=== PATIENT | male | born 1970 | race African-American/Black ===

== ENCOUNTER 2019-07-16 18:38 | Observation (INO) ==
[2019-07-16] MEDS ORDERED: ENOXAPARIN 120 MG/0.8 ML SYRINGE SUBCUT ONE ×2 (21:37→22:00)
[2019-07-16] MEDS: hydrALAZINE 20 MG/1 ML VIAL IV PRN (21:47)
[2019-07-16] MEDS ORDERED: ONDANSETRON 4 MG/2 ML VIAL IV PRN (22:36)
[2019-07-16] MEDS ORDERED: MORPHINE 4 MG/1 ML VIAL IV PRN (22:36)
[2019-07-16] MEDS ORDERED: traZODone 50 MG TABLET PO PRN (22:36)
[2019-07-16] MEDS ORDERED: ACETAMINOPHEN 325 MG TABLET PO PRN (22:36)
[2019-07-16] MEDS ORDERED: DOCUSATE SODIUM 100 MG CAPSULE PO PRN (22:36)
[2019-07-16] MEDS ORDERED: NITROGLYCERIN SL 0.4 MG TABLET SL PRN (22:43)
[2019-07-17] MEDS ORDERED: MAGNESIUM SULF RIDER 2 GM in PREMIX 1 EACH IV PRN (01:05)
[2019-07-17] MEDS ORDERED: MAGNESIUM SULF RIDER 4 GM in PREMIX 1 EACH IV PRN (01:05)
[2019-07-17 01:21] LABS: Basophils # 0.1 10*3/uL (0.0-0.2); Basophils % 0.8 % (0.0-0.8); Eosinophils # 0.2 10*3/uL (0.0-0.87); Hematocrit 43.4 VOL% (42.0-52.0); Hemoglobin 14.2 GM/DL (14.0-18.0); Immature Granulocytes % 0.3 %; Immature Granulocytes Absolute 0.02 #; Lymphocytes # 3.8 10*3/uL (1.4-4.0); Lymphocytes % 49.4 % (21.2-54.2); Mean Corpuscular HGB Conc 32.7 GM/DL (32-36); Mean Corpuscular Volume 89.9 FL (87-102); Mean Platelet Volume 9.6 FL (9.6-12.0); Monocytes % 4.6 % (1.7-12.7); Neutrophils % 41.9 % (38.7-73.9); Platelet Count 262 T/CUMM (130-400); Red Blood Count 4.83 MC/CUMM (3.8-5.5); Red Cell Distribution Width 13.2 % (9.3-17.3); White Blood Count 7.8 T/CUMM (4-12)
[2019-07-17 01:57] LABS: Albumin 3.5 G/DL (3.4-5.0); Bilirubin,Total 1.3 MG/DL (0.2-1.0); Calcium 8.8 MG/DL (8.5-10.1); Osmolality,Calculated 273.8 MOS/KG (273-304); Risk Ratio 4.91; Thyroid Stimulating Hormone 2.76 uIU/ml (0.358-3.74); Total Protein 7.2 G/DL (6.4-8.3); VLDL CHOLESTEROL 76.8 MG/DL
[2019-07-17] MEDS ORDERED: CARVEDILOL 12.5 MG TABLET PO SCH (08:00)
[2019-07-17] MEDS ORDERED: ISOSORBIDE MONONITRATE 30 MG TABLET PO SCH (08:00)
[2019-07-17] MEDS ORDERED: CLOPIDOGREL 75 MG TABLET PO SCH (09:00)
[2019-07-17] MEDS ORDERED: FUROSEMIDE 40 MG TABLET PO SCH (09:00)
[2019-07-17] MEDS ORDERED: ATORVASTATIN 80 MG TABLET PO SCH (09:00)
[2019-07-17] MEDS ORDERED: ASPIRIN EC 81 MG TABLET PO SCH (09:00)
[2019-07-17] MEDS ORDERED: PANTOPRAZOLE 40 MG TABLET PO SCH (09:00)
[2019-07-17] MEDS ORDERED: POTASSIUM CHLORIDE 10 MEQ TABLET PO SCH (09:00)
[2019-07-17] MEDS ORDERED: LOSARTAN 50 MG TABLET PO SCH (09:00)
[2019-07-17] MEDS: GABAPENTIN 600 MG TABLET PO SCH ×2 (09:15→16:36)
[2019-07-17] MEDS: hydrALAZINE 20 MG/1 ML VIAL IV PRN (09:19)
[2019-07-17 13:28] LABS: Troponin I < 0.015 NG/ML (0.00-0.045)
[2019-07-17 16:48] VITALS: BP 138/90
[2019-07-17] MEDS ORDERED: ENOXAPARIN 40 MG/0.4 ML SYRINGE SUBCUT SCH (21:00)
[2019-07-18] MEDS ORDERED: LOSARTAN 50 MG TABLET PO SCH (09:00)
== END 2019-07-17 16:52 | disposition home or self-care (01) ==
LOC: N.TELEN
PROVIDERS: ADMIT Internal Medicine; ATTEND Internal Medicine

== ENCOUNTER 2022-01-09 21:00 | Inpatient (IN) ==
[2022-01-09] MEDS ORDERED: GLUCAGON 1 MG VIAL IM PRN (22:44)
[2022-01-09] MEDS ORDERED: MAGNESIUM SULF RIDER 2 GM/50 ML PREMIX IV PRN (22:45)
[2022-01-09] MEDS ORDERED: ACETAMINOPHEN 325 MG TABLET PO PRN (22:45)
[2022-01-09] MEDS ORDERED: MAGNESIUM SULF RIDER 4 GM/100 ML PREMIX IV PRN (22:45)
[2022-01-09] MEDS ORDERED: ONDANSETRON 4 MG/2 ML VIAL IV PRN (22:45)
[2022-01-09] MEDS ORDERED: POTASSIUM CHLORIDE 20 MEQ TABLET PO PRN (22:45)
[2022-01-09] MEDS ORDERED: DEXTROSE 10% 250 ML BAG IV PRN (22:52)
[2022-01-09] MEDS ORDERED: ENOXAPARIN 40 MG/0.4 ML SYRINGE SUBCUT SCH (23:00)
[2022-01-09 23:13] LABS: Basophils % 0.4 % (0.0-0.8); Eosinophils # 0.2 10*3/uL (0.0-0.87); Eosinophils % 2.5 % (0.00-10.9); Hematocrit 44.8 VOL% (42.0-52.0); Hemoglobin 15.1 GM/DL (14.0-18.0); Immature Granulocytes % 0.8 %; Immature Granulocytes Absolute 0.07 #; Lymphocytes # 1.4 10*3/uL (1.4-4.0); Lymphocytes % 14.8 % (21.2-54.2); Mean Corpuscular HGB Conc 33.7 GM/DL (32-36); Mean Corpuscular Volume 95.9 FL (87-102); Mean Platelet Volume 10.4 FL (9.6-12.0); Monocytes % 9.1 % (1.7-12.7); Neutrophils % 72.4 % (38.7-73.9); Platelet Count 129 T/CUMM (130-400); Red Blood Count 4.67 MC/CUMM (3.8-5.5); Red Cell Distribution Width 14.2 % (9.3-17.3); White Blood Count 9.1 T/CUMM (4-12)
[2022-01-09 23:23] LABS: PT Patient Result 10.8 SECS (10.5-12.0); Partial Thromboplastin Time 27.5 SECS (23.8-32.1)
[2022-01-09] MEDS: SODIUM CHLORIDE 0.9% 1,000 ML IV SCH (23:27)
[2022-01-09 23:34] LABS: Albumin 3.2 G/DL (3.4-5.0); Bilirubin,Total 0.9 MG/DL (0.20-1.00); Calcium 9.9 MG/DL (8.5-10.1); Osmolality,Calculated 280.4 MOS/KG (273-304); Potassium 3.4 MMOL/L (3.5-5.1); Risk Ratio 4.88; Total Protein 7.9 G/DL (6.4-8.2); VLDL Cholesterol 40.2 MG/DL
[2022-01-09] MEDS ORDERED: INFLUENZA VIRUS VACCINE 0.5 ML SYRINGE IM ONE (23:53)
[2022-01-10] MEDS: HYDROmorphone 1 MG/1 ML SYRINGE IV PRN ×6 (00:09→21:05)
[2022-01-10] MEDS: POTASSIUM CHLORIDE RIDER 10 MEQ/100 ML PREMIX IV PRN ×3 (03:05→05:23)
[2022-01-10 03:40] LABS: Hyaline Casts,Urine 8 /LPF (0-3); Mucus,Urine Few /LPF (Occasional); RBC,Urine 2 /HPF (0-4); Squamous Epithelial Cell,Urine Occasional /HPF (0-10)
[2022-01-10 03:41] LABS: Glucose,Urine (UA) 250 mg/dL (Negative); Ketones,Urine 15 mg/dL (Negative); Nitrite,Urine Positive (Negative); Protein,Urine >=300 MG/DL; Urine Appearance Slightly Cloudy (Clear); Urine Color Dark Yellow (Yellow); Urine Specific Gravity > 1.030 (1.001-1.035); Urine pH 6.5 (4.5-8.0)
[2022-01-10 03:42] LABS: Bilirubin,Urine Moderate mg/dL (Negative); Blood, Urine Trace mg/dL (Negative); Urine Urobilinogen 0.2 EU/DL (<2.0)
[2022-01-10] MEDS: FENOFIBRATE 145 MG TABLET PO SCH (08:40)
[2022-01-10] MEDS: carvediloL 12.5 MG TABLET PO SCH ×2 (08:40→21:02)
[2022-01-10] MEDS: ENOXAPARIN 40 MG/0.4 ML SYRINGE SUBCUT SCH (08:41)
[2022-01-10] MEDS: INSULIN REGULAR 100 UNIT/ML SUBCUT SCH ×4 (08:41→20:58)
[2022-01-10] MEDS: PANTOPRAZOLE 40 MG VIAL IV SCH (08:41)
[2022-01-10 09:14] LABS: Basophils % 0.4 % (0.0-0.8); Eosinophils # 0.2 10*3/uL (0.0-0.87); Eosinophils % 2.6 % (0.00-10.9); Hematocrit 41.1 VOL% (42.0-52.0); Hemoglobin 13.8 GM/DL (14.0-18.0); Immature Granulocytes % 0.7 %; Immature Granulocytes Absolute 0.05 #; Lymphocytes # 1.2 10*3/uL (1.4-4.0); Lymphocytes % 16.9 % (21.2-54.2); Mean Corpuscular HGB Conc 33.6 GM/DL (32-36); Mean Platelet Volume 10.6 FL (9.6-12.0); Monocytes % 9.7 % (1.7-12.7); Neutrophils % 69.7 % (38.7-73.9); Platelet Count 138 T/CUMM (130-400); Red Blood Count 4.28 MC/CUMM (3.8-5.5); Red Cell Distribution Width 14.5 % (9.3-17.3); White Blood Count 6.9 T/CUMM (4-12)
[2022-01-10 09:33] LABS: Calcium 9.4 MG/DL (8.5-10.1); Osmolality,Calculated 278.4 MOS/KG (273-304); Potassium 3.7 MMOL/L (3.5-5.1)
[2022-01-10] MEDS: SODIUM CHLORIDE 0.9% 1,000 ML IV SCH ×2 (10:51→19:01)
[2022-01-10] MEDS: DOCUSATE SODIUM 100 MG CAPSULE PO SCH ×2 (11:33→21:03)
[2022-01-10] MEDS: ATORVASTATIN 80 MG TABLET PO SCH (21:02)
[2022-01-11] MEDS: HYDROmorphone 1 MG/1 ML SYRINGE IV PRN ×3 (02:57→12:49)
[2022-01-11] MEDS: SODIUM CHLORIDE 0.9% 1,000 ML IV SCH ×2 (02:57→13:47)
[2022-01-11 05:22] LABS: Basophils % 0.6 % (0.0-0.8); Eosinophils # 0.2 10*3/uL (0.0-0.87); Eosinophils % 2.6 % (0.00-10.9); Hematocrit 39.3 VOL% (42.0-52.0); Hemoglobin 12.5 GM/DL (14.0-18.0); Immature Granulocytes % 1.1 %; Immature Granulocytes Absolute 0.07 #; Lymphocytes # 1.4 10*3/uL (1.4-4.0); Mean Corpuscular HGB Conc 31.8 GM/DL (32-36); Mean Corpuscular Volume 101.6 FL (87-102); Mean Platelet Volume 11.1 FL (9.6-12.0); Monocytes % 10.2 % (1.7-12.7); Neutrophils % 63.5 % (38.7-73.9); Platelet Count 143 T/CUMM (130-400); Red Blood Count 3.87 MC/CUMM (3.8-5.5); Red Cell Distribution Width 14.6 % (9.3-17.3); White Blood Count 6.2 T/CUMM (4-12)
[2022-01-11 05:46] LABS: Calcium 9.2 MG/DL (8.5-10.1); Osmolality,Calculated 277.1 MOS/KG (273-304); Potassium 3.6 MMOL/L (3.5-5.1)
[2022-01-11 06:23] LABS: Hepatitis B Core IgM Quant 0.15 Index; Hepatitis B Surface Ag Quant 0.15 Index; Hepatitis B Surface Ag Result Non-Reactive (NonReactive); Hepatitis C Virus Ab Quant 0.08 Index; Hepatitis C Virus Ab Result Non-Reactive (NonReactive)
[2022-01-11] MEDS: ENOXAPARIN 40 MG/0.4 ML SYRINGE SUBCUT SCH (08:18)
[2022-01-11] MEDS: FENOFIBRATE 145 MG TABLET PO SCH (08:18)
[2022-01-11] MEDS: DOCUSATE SODIUM 100 MG CAPSULE PO SCH ×2 (08:19→20:59)
[2022-01-11] MEDS: carvediloL 12.5 MG TABLET PO SCH ×2 (08:19→20:58)
[2022-01-11] MEDS: PANTOPRAZOLE 40 MG VIAL IV SCH (08:22)
[2022-01-11] MEDS: INSULIN REGULAR 100 UNIT/ML SUBCUT SCH ×4 (09:16→21:00)
[2022-01-11] MEDS: ATORVASTATIN 80 MG TABLET PO SCH (20:58)
[2022-01-12 06:30] LABS: Basophils % 0.6 % (0.0-0.8); Eosinophils # 0.1 10*3/uL (0.0-0.87); Eosinophils % 1.7 % (0.00-10.9); Hematocrit 36.6 VOL% (42.0-52.0); Hemoglobin 11.6 GM/DL (14.0-18.0); Immature Granulocytes % 0.8 %; Immature Granulocytes Absolute 0.04 #; Lymphocytes # 1.5 10*3/uL (1.4-4.0); Lymphocytes % 28.7 % (21.2-54.2); Mean Corpuscular HGB Conc 31.7 GM/DL (32-36); Mean Corpuscular Volume 98.9 FL (87-102); Mean Platelet Volume 11.2 FL (9.6-12.0); Monocytes % 14.7 % (1.7-12.7); Neutrophils % 53.5 % (38.7-73.9); Platelet Count 148 T/CUMM (130-400); Red Cell Distribution Width 14.4 % (9.3-17.3); White Blood Count 5.2 T/CUMM (4-12)
[2022-01-12 06:52] LABS: Calcium 9.2 MG/DL (8.5-10.1); Osmolality,Calculated 275.8 MOS/KG (273-304)
[2022-01-12 07:00] LABS: Eosinophils 3 % (0-10); Lymphocytes 37 % (20-55); Platelet Estimate Adequate; Segmented Neutrophils 53 % (50-85); Total Cells Counted 100
[2022-01-12] MEDS: INSULIN REGULAR 100 UNIT/ML SUBCUT SCH ×4 (07:10→21:34)
[2022-01-12] MEDS: ENOXAPARIN 40 MG/0.4 ML SYRINGE SUBCUT SCH (08:12)
[2022-01-12] MEDS: PANTOPRAZOLE 40 MG VIAL IV SCH (08:13)
[2022-01-12] MEDS: carvediloL 12.5 MG TABLET PO SCH ×2 (08:13→21:28)
[2022-01-12] MEDS: DOCUSATE SODIUM 100 MG CAPSULE PO SCH ×2 (08:13→21:28)
[2022-01-12] MEDS: FENOFIBRATE 145 MG TABLET PO SCH (08:14)
[2022-01-12] MEDS: SODIUM CHLORIDE 0.9% 1,000 ML IV SCH ×2 (13:18→21:32)
[2022-01-12] MEDS ORDERED: SIMETHICONE CHEW 125 MG TABLET PO PRN (13:37)
[2022-01-12] MEDS: HYDROmorphone 1 MG/1 ML SYRINGE IV PRN (15:25)
[2022-01-12] MEDS ORDERED: TAMSULOSIN 0.4 MG CAPSULE PO ONE (15:47)
[2022-01-12] MEDS ORDERED: HYDROmorphone 1 MG/1 ML SYRINGE IV PRN (15:48)
[2022-01-12] MEDS: hydrALAZINE 20 MG/1 ML VIAL IV PRN (16:12)
[2022-01-12] MEDS ORDERED: HYOSCYAMINE 0.125 MG TABLET PO ONE (16:33)
[2022-01-12] MEDS: HYOSCYAMINE 0.125 MG TABLET PO SCH ×2 (17:04→21:28)
[2022-01-12] MEDS: ATORVASTATIN 80 MG TABLET PO SCH (21:29)
[2022-01-13] MEDS: HYOSCYAMINE 0.125 MG TABLET PO SCH ×3 (02:30→09:42)
[2022-01-13] MEDS: hydrALAZINE 20 MG/1 ML VIAL IV PRN (04:48)
[2022-01-13] MEDS: SODIUM CHLORIDE 0.9% 1,000 ML IV SCH (04:49)
[2022-01-13 05:59] LABS: Basophils % 0.5 % (0.0-0.8); Eosinophils # 0.1 10*3/uL (0.0-0.87); Eosinophils % 1.3 % (0.00-10.9); Hemoglobin 11.9 GM/DL (14.0-18.0); Immature Granulocytes % 0.8 %; Immature Granulocytes Absolute 0.05 #; Lymphocytes # 1.2 10*3/uL (1.4-4.0); Lymphocytes % 20.4 % (21.2-54.2); Mean Corpuscular HGB Conc 33.1 GM/DL (32-36); Mean Corpuscular Volume 97.6 FL (87-102); Mean Platelet Volume 10.8 FL (9.6-12.0); Monocytes % 15.4 % (1.7-12.7); Neutrophils % 61.6 % (38.7-73.9); Platelet Count 179 T/CUMM (130-400); Red Blood Count 3.69 MC/CUMM (3.8-5.5)
[2022-01-13 06:05] LABS: Calcium 8.8 MG/DL (8.5-10.1); Osmolality,Calculated 270.1 MOS/KG (273-304); Potassium 3.6 MMOL/L (3.5-5.1)
[2022-01-13] MEDS ORDERED: ISOSORBIDE MONONITRATE 30 MG TABLET PO SCH (08:00)
[2022-01-13] MEDS ORDERED: CLOPIDOGREL 75 MG TABLET PO SCH (09:00)
[2022-01-13] MEDS ORDERED: LOSARTAN 50 MG TABLET PO SCH (09:00)
[2022-01-13] MEDS: INSULIN REGULAR 100 UNIT/ML SUBCUT SCH (09:35)
[2022-01-13] MEDS: carvediloL 12.5 MG TABLET PO SCH (09:41)
[2022-01-13] MEDS: FENOFIBRATE 145 MG TABLET PO SCH (09:42)
[2022-01-13] MEDS: DOCUSATE SODIUM 100 MG CAPSULE PO SCH (09:42)
[2022-01-13] MEDS: PANTOPRAZOLE 40 MG VIAL IV SCH (09:46)
[2022-01-13] MEDS: ENOXAPARIN 40 MG/0.4 ML SYRINGE SUBCUT SCH (09:47)
[2022-01-13 11:44] VITALS: BP 148/89
[2022-01-13] MEDS ORDERED: TAMSULOSIN 0.4 MG CAPSULE PO SCH (21:00)
[2022-01-14] MEDS ORDERED: PANTOPRAZOLE 40 MG TABLET PO SCH (16:30)
== END 2022-01-13 13:33 | disposition home or self-care (01) | DRG 439 ==
LOC: INTOOBSV 21:13 → N.3E 21:13 → SUATTDRO 21:13
PROVIDERS: ADMIT Internal Medicine; ATTEND Hospitalist